=== PATIENT | male | born 1985 | race Hispanic/Latino ===

== ENCOUNTER 2024-05-17 12:34 | Emergency (ER) | payer OTHER ==
[2024-05-17 13:11] LABS: Absolute Basophils 0.1 K/uL (0-0.5); Absolute Eosinophils 0.1 K/uL (0-0.5); Absolute Monocytes 0.6 K/uL (0.1-1.3); Absolute Neutrophil 11.2 K/uL (1.8-8.0); Basophils % 0.6 % (0-1.3); Eosinophils % 0.4 % (0-4.4); Hematocrit 47.7 % (39.6-49.0); Hemoglobin 15.9 g/dL (13.6-17.9); Lymphocytes % 14.3 % (15.3-44.8); MCH 30.1 pg (27.0-35.0); MCHC 33.3 g/dL (32.0-36.0); MCV 90.4 fL (80-100); MPV 8.9 fL (7.6-11.3); Monocytes % 4.1 % (3.3-12.3); Neutrophils % 80.6 % (41.7-73.7); Platelets 390 thou/uL (152-406); RBC Red Blood Cell Count 5.27 M/uL (4.33-5.43); Red Cell Distribution Width 13.3 % (12.1-15.2)
--- NOTE | 2024-05-17 13:18 | RAD REPORT ---
EXAM: Right upper quadrant ultrasound. CLINICAL HISTORY: ABD PAIN COMPARISON: None. FINDINGS: Gallbladder: Normal. Bile ducts: No intrahepatic or extrahepatic biliary dilatation. Common bile duct measures 2 mm. Limited imaging of the liver shows fatty infiltration. IMPRESSION: Fatty liver. Negative gallbladder/biliary tree findings.
[2024-05-17] MEDS ORDERED: ONDANSETRON 4 MG/2 ML VIAL ONE (13:24)
[2024-05-17] MEDS ORDERED: MORPHINE 4 MG/ML SYR ONE (13:24)
--- NOTE | 2024-05-17 13:24 | RAD REPORT ---
EXAMINATION: CT ABDOMEN AND PELVIS WITH CONTRAST CLINICAL INDICATION: ABD PAIN TECHNIQUE: CT abdomen and pelvis was performed, after the administration of IV contrast, as per [facility] protocol. Axial, sagittal and coronal reconstructions were obtained. One or more of the following dose reduction techniques were used: Automated exposure control, adjustment of the mA and k V according to patient size, and iterative reconstruction. Unless otherwise specified, incidental findings do not require dedicated imaging follow-up. COMPARISON: No prior exam. FINDINGS: LOWER CHEST: The visualized lung bases are clear. Small hiatal hernia. LIVER: Mild fatty liver is present. No focal lesion or biliary dilatation is seen. Grossly unremark able gallbladder. SPLEEN: Normal size. No focal lesion. PANCREAS: No mass, ductal dilation, or drea-pancreatic fluid. ADRENALS: Normal; no mass. KIDNEYS: Normal size and contour. No hydronephrosis. GASTROINTESTINAL TRACT: No evidence of free air, significant intra-abdominal free fluid, bowel obstru ction or abscess. Moderate stool is present throughout the colon. Small fat-containing umbilical hernia. APPENDIX: Normal appendix. LYMPH NODES: No lymphadenopathy. MUSCULOSKELETAL: No acute or suspicious osseous abnormality. ADDITIONAL FINDINGS: None. IMPRESSION: No acute or concerning abnormalities seen in the abdomen or pelvis. Mild fatty liver.
[2024-05-17] MEDS ORDERED: FAMOTIDINE 20 MG/2 ML VIAL IV ONE (13:25)
[2024-05-17 13:32] LABS: Albumin 3.8 g/dL (3.4-5.0); Albumin/Globulin Ratio 0.9 (1.1-1.8); Anion Gap 7.8 mEq/L (5.0-15.0); Bilirubin Total 0.5 mg/dL (0.2-1.0); Globulin 4.2 g/dL (2.3-3.5); Potassium 3.8 mEq/L (3.5-5.1)
--- NOTE | 2024-05-17 13:57 | EDPHYS ---
Physician Documentation [facility] Name: Freddie Rivas Age: 39 yrs Sex: Male : 1985 Arrival Date: 05/17/2024 Time: 12:34 Bed 19 Private MD: ED Physician Sonny Cast HPI: 05/17 12:55 This 39 yrs old Male presents to ER via EMS with complaints of Epigastric Pain.rn 12:55 The patient presents with abdominal pain in the epigastric area. Onset: The rn symptoms/episode began/occurred 2 day(s) ago. The symptoms do not radiate. Associated signs and symptoms: Pertinent positives: nausea and vomiting, Pertinent negatives: blood in stools, chest pain, fever, hematuria, vomiting blood. Modifying factors: The symptoms are alleviated by nothing, the symptoms are aggravated by nothing. Severity of pain: At its worst the pain was mild in the emergency department the pain is unchanged. The patient has not experienced similar symptoms in the past. Patient reports 2 or 3 days of epigastric abdominal pain associated with nausea and vomiting. No diarrhea. No fever. History of acid reflux. Denies any hematemesis. No blood thinners. No blood in stool or melena.. Historical: - Allergies: 12:38 No Known Allergies; bp - Home Meds: 12:38 None [Active]; bp - PMHx: 12:38 None; bp - Immunization history:: Adult Immunizations up to date. - Infectious Disease History:: Denies. - Social history:: Smoking status: unknown. - Family history:: not pertinent. - Hospitalizations: : No recent hospitalization is reported. ROS: 12:55 Constitutional: Negative for fever, chills, and weight loss, Cardiovascular: Negative rn for chest pain, palpitations, and edema, Respiratory: Negative for shortness of breath, cough, wheezing, and pleuritic chest pain, Abdomen/GI: Positive for abdominal pain with nausea and vomiting Back: Negative for injury and pain, MS/Extremity: Negative for injury and deformity, Skin: Negative for injury, rash, and discoloration, Neuro: Negative for headache, weakness, numbness, tingling, and seizure, Exam: 12:55 Constitutional: This is a well developed, well nourished patient who is awake, alert, rn and in no acute distress. Cardiovascular: Regular rate and rhythm. No pulse deficits. Respiratory: No increased work of breathing, no retractions or nasal flaring. Abdomen/GI: Soft, epigastric tenderness. No rebound or distention MS/ Extremity: Pulses equal, no cyanosis. Neuro: Awake and alert, GCS 15 Vital Signs: 12:37 BP 138 / 86; Pulse 85; Resp 16; Temp 98.6; Pulse Ox 96% ; bp 14:10 BP 137 / 69; Pulse 79; Resp 16; Temp 98; Pulse Ox 99% ; rs5 MDM: 12:37 Medical Screening Exam initiated ci 13:56 Differential diagnosis: bowel obstruction, cholecystitis, Cholelithiasis, rn diverticulitis, gastritis, gastroesophageal reflux disease, non-specific abd pain, pancreatitis, Peptic Ulcer Disease, Perf. Duodenal Ulcer, Perf. Gastric Ulcer. Data reviewed: vital signs, nurses notes, lab test result(s), radiologic studies, CT scan, ultrasound, and as a result, I will discharge patient. Counseling: I had a detailed discussion with the patient and/or guardian regarding the historical points, exam findings, and any diagnostic results supporting the discharge/admit diagnosis, lab results, radiology results, the need for outpatient follow up, to return to the emergency department if symptoms worsen or persist or if there are any questions or concerns that arise at home. Special discussion: Based on the patient's Hx, exam, and Dx evaluation, there is no indication for emergent surgery or inpatient Tx. It is understood by the patient/guardian that if the Sx's persist or worsen they need to return immediately for re-evaluation. Based on the history and exam findings, there is no indication for further emergent testing or inpatient evaluation. I discussed with the patient/guardian the need to see the nurse receptionist for further evaluation of the symptoms. 13:56 ED course: Normal hemoglobin. Patient again denies any hematemesis. CT abdomen pelvis rn and ultrasound without acute findings. Patient states pain has resolved and no longer nauseated. Will discharge home with nausea medication and antacid and recommend GI follow-up as well as diet modification.. 05/17 12:40 Order name: CBC with Diff; Complete Time: 13:49 rn 05/17 12:40 Order name: CMP; Complete Time: 13: rn 05/17 12:40 Order name: Lipase; Complete Time: :49 rn 05/17 12:40 Order name: CT Abd/Pelvis - IV Contrast Only; Complete Time: 13:49 rn 05/17 12:40 Order name: US Abdomen Limited; Complete Time: 13:49 rn 05/17 12:40 Order name: IV Saline Lock; Complete Time: 12:59 rn 05/17 12:40 Order name: Labs collected and sent; Complete Time: 12:59 rn Administered Medications: 13:00 Drug: Famotidine IVP 20 mg IVP once; dilute with 10 mL 0.9% NaCl; give over 2 minutes bp Route: IVP; Site: left antecubital; 14:11 Follow up: Response: No adverse reaction rs5 13:00 Drug: Ondansetron IVP 4 mg IVP once; over 2 minutes Route: IVP; Site: left antecubital; bp 14:11 Follow up: Response: No adverse reaction rs5 13:00 Drug: morphine IVP or IV 4 mg IVP once over 4 mins Route: IVP; Infused Over: 4 mins; bp Site: left antecubital; 14:11 Follow up: Response: No adverse reaction rs5 Disposition Summary: 05/17/24 13:57 Discharge Ordered Notes: Location: Home rn Problem: new rn Symptoms: have improved rn Condition: Stable rn Diagnosis - Upper abdominal pain, unspecified rn - Other gastritis without bleeding rn Followup: rn - With: Nacho Salcedo MD - When: As needed - Reason: Recheck today's complaints, Re-evaluation by your physician Discharge Instructions: - Discharge Summary Sheet rn - Abdominal Pain, Adult rn - Gastritis, Adult rn - Gastroesophageal Reflux Disease, Adult rn Forms: - Medication Reconciliation Form rn - Antibiotic corporate attorney - Prescription Opioid Use rn - Patient Portal Instructions rn - Leadership Thank You Letter rn Prescriptions: - ondansetron 4 mg Oral Tablet,disintegrating - take 1 tablet ORAL route every 8 hours As needed; 12 tablet; Refills: 0, rn Product Selection Permitted - Protonix 40 mg Oral Tablet - take 1 tablet ORAL route once daily; 30 tablet; Refills: 0, Product Selection rn Permitted - Tramadol 50 mg Oral Tablet - take 1 tablet ORAL route every 8 hours as needed; 12 tablet; Refills: 0, rn Product Selection Permitted Signatures: Dispatcher [employer] Sonny Grider MD MD rn Peltier, Brian RN ABHAY chapin [facility] Ricky RN rs5 Corrections: (The following items were deleted from the chart) 12: 12:41 CBC+H.LAB.BRZ ordered. EDMS EDMS 12: 12:41 COMPREHENSIVE METABOLIC PANEL+C.LAB.BRZ ordered. EDMS EDMS 12: 12:41 LIPASE+C.LAB.BRZ ordered. EDMS EDMS
--- NOTE | 2024-05-17 13:57 | ER ---
Nurse's Notes [facility] Name: Freddie Rivas Age: 39 yrs Sex: Male : 1985 Arrival Date: 05/17/2024 Time: 12:34 Bed 19 Private MD: Diagnosis: Upper abdominal pain, unspecified;Other gastritis without bleeding Presentation: 05/17 12:37 Chief complaint: EMS states: EPIGASTRIC PAIN x2 DAYS. Coronavirus screen: At this time, bp the client does not indicate any symptoms associated with coronavirus-19. Ebola Screen: No symptoms or risks identified at this time. Initial Sepsis Screen: Does the patient meet any 2 criteria? No. Patient's initial sepsis screen is negative. Does the patient have a suspected source of infection? No. Patient's initial sepsis screen is negative. Risk Assessment: Do you want to hurt yourself or someone else? Patient reports no desire to harm self or others. Onset of symptoms is unknown. 12:37 Method Of Arrival: EMS: [facility] bp 12:37 Acuity: NIMO 3 bp Triage Assessment: 12:38 General: Appears in no apparent distress. Behavior is calm, cooperative, appropriate bp for age. Pain: Complains of pain in abdomen. EENT: No deficits noted. Neuro: No deficits noted. Cardiovascular: No deficits noted. Respiratory: No deficits noted. GI: Reports epigastric pain, nausea. : No signs and/or symptoms were reported regarding the genitourinary system. Derm: No deficits noted. Musculoskeletal: No deficits noted. Historical: - Allergies: 12:38 No Known Allergies; bp - Home Meds: 12:38 None [Active]; bp - PMHx: 12:38 None; bp - Immunization history:: Adult Immunizations up to date. - Infectious Disease History:: Denies. - Social history:: Smoking status: unknown. - Family history:: not pertinent. - Hospitalizations: : No recent hospitalization is reported. Screenin:39 [facility] ED Fall Risk Assessment (Adult) History of falling in the last 3 months, bp including since admission No falls in past 3 months (0 pts) Confusion or Disorientation No (0 pts) Intoxicated or Sedated No (0 pts) Impaired Gait No (0 pts) Mobility Assist Device Used No (0 pt) Altered Elimination No (0 pt) Score/Fall Risk Level 0 - 2 = Low Risk. Abuse screen: Denies threats or abuse. Denies injuries from another. Nutritional screening: No deficits noted. Tuberculosis screening: No symptoms or risk factors identified. Assessment: 12:45 General: Appears in no apparent distress. uncomfortable. rs5 14:11 Reassessment: Patient appears in no apparent distress at this time. Patient is alert, rs5 oriented x 3, equal unlabored respirations, skin warm/dry/pink. Vital Signs: 12:37 BP 138 / 86; Pulse 85; Resp 16; Temp 98.6; Pulse Ox 96% ; bp 14:10 BP 137 / 69; Pulse 79; Resp 16; Temp 98; Pulse Ox 99% ; rs5 ED Course: 12:36 Patient arrived in ED. bp 12:37 Sonja Power is Attending Physician. ci 12:38 Triage completed. bp 12:38 Arm band placed on. bp 12:39 Attending Physician role handed off by Sonja Power rn 12:39 Sonny Cast MD is Attending Physician. rn 12:39 Patient has correct armband on for positive identification. bp 12:50 Parker Ochoa, RN is Primary Nurse. bp 12:57 Initial lab(s) drawn, by ED staff, sent to lab. Inserted saline lock: 22 gauge in left bp antecubital area, using aseptic technique. Blood collected. Flushed with 10 mL NS. 12:59 US Abdomen Limited In Process Unspecified. EDMS 12:59 CT Abd/Pelvis - IV Contrast Only Sent. bp 13:08 CT Abd/Pelvis - IV Contrast Only In Process Unspecified. EDMS 13:57 Nacho Salcedo MD is Referral Physician. rn 14:09 No provider procedures requiring assistance completed. IV discontinued, intact, rs5 bleeding controlled, No redness/swelling at site. Pressure dressing applied. 14:12 Provided Education on: N/A. rs5 Administered Medications: 13:00 Drug: Famotidine IVP 20 mg IVP once; dilute with 10 mL 0.9% NaCl; give over 2 minutes bp Route: IVP; Site: left antecubital; 14:11 Follow up: Response: No adverse reaction rs5 13:00 Drug: Ondansetron IVP 4 mg IVP once; over 2 minutes Route: IVP; Site: left antecubital; bp 14:11 Follow up: Response: No adverse reaction rs5 13:00 Drug: morphine IVP or IV 4 mg IVP once over 4 mins Route: IVP; Infused Over: 4 mins; bp Site: left antecubital; 14:11 Follow up: Response: No adverse reaction rs5 Medication: 14:12 VIS not applicable for this client. rs5 Outcome: 13:57 Discharge ordered by . rn 14:09 Discharged to home ambulatory, rs5 14:09 Condition: stable 14:09 Discharge instructions given to patient, Instructed on discharge instructions, follow up and referral plans. medication usage, Demonstrated understanding of instructions, follow-up care, medications, Prescriptions given X 3, 14:12 Patient left the ED. rs5 Signatures: Dispatcher [employer] EDMS Sonny Cast MD MD rn Peltier, Brian RN RN Bebo Cross RN RN rs5 Sonja Power
[2024-05-17 14:28] VITALS: BP 137/69; TEMP 98; O2SAT 99
== END 2024-05-17 14:12 | disposition home or self-care (01) ==
LOC: ER 12:34
DX: K29.60 Other gastritis without bleeding (principal)
CPT/HCPCS: 85025; 36415; 83690; 80053; 74177; 76705; Q9967; J2405; 96374; 96375; 99284